=== PATIENT | female | born 1935 | race Caucasian/White ===

== ENCOUNTER 2016-04-06 14:20 | Inpatient (IN) | payer MEDICARE, MEDICAID ==
[2016-04-06] VITALS (9 sets, daily range): BP systolic 76–113; RESP 12–34; TEMP 100.8; BMI 36.1
[~2016-04-06] VITALS: Ht 162.6 cm; Wt 94.3 kg
[2016-04-06] MEDS ORDERED: SODIUM CHLORIDE 0.9% 1,000 ML ONE (15:09)
[2016-04-06] MEDS ORDERED: DUONEB INH ONE (15:23)
[2016-04-06] MEDS ORDERED: SODIUM CHLORIDE 0.9% 2,000 ML ONE (16:32)
[2016-04-06] MEDS ORDERED: SODIUM CHLORIDE 0.9% 100 ML IV ONE (16:39)
[2016-04-06] MEDS ORDERED: VANCOMYCIN 1,500 MG in SODIUM CHLORIDE 0.9% 250 ML IV ONE (16:50)
[2016-04-06] MEDS ORDERED: SODIUM CHLORIDE 0.9% 1,000 ML IV ONE ×2 (17:40)
[2016-04-06] MEDS ORDERED: PHARMACY TO DOSE LEVAQUIN IV SCH (17:40)
[2016-04-06] MEDS ORDERED: PHARMACY TO DOSE MERREM XX SCH (17:40)
[2016-04-06] MEDS ORDERED: PHARMACY TO DOSE VANCOMYCIN IV SCH (17:40)
[2016-04-06] MEDS ORDERED: SODIUM CHLORIDE 0.9% 1,000 ML IV SCH (17:45)
[2016-04-06] MEDS ORDERED: LEVOFLOXACIN 500 MG INJ IV ONE (17:52)
[2016-04-06] MEDS ORDERED: Furosemide 40 MG/4 ML VIAL ONE (19:48)
[2016-04-06] MEDS ORDERED: NOREPINEPHRINE 16 MG in DEXTROSE 5% 234 ML IV SCH (20:05)
[2016-04-06] MEDS: DUONEB INH SCH ×3 (20:10→23:14)
[2016-04-06] MEDS: [UNRECOGNIZED DRUG - REMARK] XX SCH (20:48)
[2016-04-06] MEDS ORDERED: Meropenem 500 MG in SODIUM CHLORIDE 0.9% 100 ML IV SCH (20:50)
[2016-04-06] MEDS ORDERED: VANCOMYCIN 1,750 MG in SODIUM CHLORIDE 0.9% 500 ML IV ONE (20:50)
[2016-04-06] MEDS ORDERED: LEVOFLOXACIN 750 MG/150 ML 150 ML IV SCH (21:00)
[2016-04-06] MEDS: PANTOPRAZOLE 40 MG VIAL IV SCH (21:25)
[2016-04-06] MEDS: Meropenem 500 MG in SODIUM CHLORIDE 0.9% 100 ML IV SCH (21:34)
[2016-04-07] VITALS (67 sets, daily range): BP systolic 74–142; RESP 16–27; TEMP 96.3–100.2; Ht 162.6 cm; Wt 94.3 kg
[2016-04-07] MEDS ORDERED: PROPOFOL 100 ML 100 ML IV ONE (05:37)
[2016-04-07] MEDS ORDERED: FENTANYL DRIP 50 ML IV ONE (06:37)
[2016-04-07] MEDS: PROPOFOL 100 ML 100 ML IV PRN ×4 (06:47→19:49)
[2016-04-07] MEDS: FENTANYL DRIP 50 ML IV PRN ×2 (06:48→13:48)
[2016-04-07] MEDS: [UNRECOGNIZED DRUG - REMARK] XX SCH (07:21)
[2016-04-07] MEDS: DUONEB INH SCH ×5 (07:43→23:18)
[2016-04-07] MEDS: PANTOPRAZOLE 40 MG VIAL IV SCH (07:48)
[2016-04-07] MEDS: Meropenem 500 MG in SODIUM CHLORIDE 0.9% 100 ML IV SCH ×2 (07:51→19:48)
[2016-04-07] MEDS ORDERED: KETAMINE HCL 500 MG/10 ML VIAL ONE (08:27)
[2016-04-07] MEDS ORDERED: ROCURONIUM 50 MG VIAL IV ONE (08:27)
[2016-04-07] MEDS ORDERED: LACT RINGERS 1,000 ML IV SCH (08:30)
[2016-04-07] MEDS ORDERED: LACT RINGERS 1,000 ML IV ONE (08:30)
[2016-04-07] MEDS: CHLORHEXIDINE 0.12% ORAL CARE FOR VENT PATIENTS 15 ML SWAB SCH (12:08)
[2016-04-07] MEDS ORDERED: VANCOMYCIN 1,500 MG in SODIUM CHLORIDE 0.9% 250 ML IV ONE (13:55)
[2016-04-08] VITALS (42 sets, daily range): BP systolic 108–160; RESP 6–26; TEMP 98.6–99.5
[2016-04-08] MEDS: DUONEB INH SCH ×6 (02:50→22:28)
[2016-04-08] MEDS: SODIUM CHLORIDE 0.9% FLUSH BAG 500 ML IV SCH (05:42)
[2016-04-08] MEDS: Meropenem 500 MG in SODIUM CHLORIDE 0.9% 100 ML IV SCH (07:42)
[2016-04-08] MEDS: MAGNESIUM SULF 1 GM/100 ML 100 ML IV SCH ×2 (08:36→10:02)
[2016-04-08] MEDS: PANTOPRAZOLE 40 MG VIAL IV SCH (10:02)
[2016-04-08] MEDS: CEFTRIAXONE 2 GM in SODIUM CHLORIDE 0.9% 50 ML IV SCH (11:23)
[2016-04-08] MEDS: CHLORHEXIDINE 0.12% ORAL CARE FOR VENT PATIENTS 15 ML SWAB SCH ×2 (12:08)
[2016-04-08] MEDS ORDERED: Furosemide 40 MG/4 ML VIAL IV ONE (13:25)
[2016-04-08] MEDS: PROPOFOL 100 ML 100 ML IV PRN (19:40)
[2016-04-09] VITALS (29 sets, daily range): BP systolic 128–176; RESP 10–26; TEMP 99.4–100.7
[2016-04-09] MEDS: CHLORHEXIDINE 0.12% ORAL CARE FOR VENT PATIENTS 15 ML SWAB SCH (00:37)
[2016-04-09] MEDS: DUONEB INH SCH ×6 (02:28→22:20)
[2016-04-09] MEDS: SODIUM CHLORIDE 0.9% FLUSH BAG 500 ML IV SCH (05:54)
[2016-04-09] MEDS: PROPOFOL 100 ML 100 ML IV PRN (05:56)
[2016-04-09] MEDS: LANSOPRAZOLE 30 MG SOLUTAB NG SCH (06:08)
[2016-04-09] MEDS ORDERED: PANTOPRAZOLE 40 MG TAB PO SCH (07:00)
[2016-04-09] MEDS: CEFTRIAXONE 2 GM in SODIUM CHLORIDE 0.9% 50 ML IV SCH (08:42)
[2016-04-09] MEDS ORDERED: Furosemide 40 MG/4 ML VIAL IV ONE ×2 (12:40→19:00)
[2016-04-09] MEDS: ACETAMINOPHEN 325 MG TAB PO PRN ×2 (12:44→20:55)
[2016-04-09] MEDS: Carvedilol 6.25 MG TAB PO SCH ×2 (13:12→20:25)
[2016-04-09] MEDS ORDERED: BISACODYL 10 MG SUPP RECTAL ONE (20:45)
[2016-04-09] MEDS ORDERED: FLEET ENEMA 132 ML BTL RECTAL PRN (20:45)
[2016-04-10] VITALS (25 sets, daily range): BP systolic 99–178; RESP 10–27; TEMP 97.5–98.7
[2016-04-10] MEDS: SODIUM CHLORIDE 0.9% FLUSH BAG 500 ML IV SCH (05:42)
[2016-04-10] MEDS: LANSOPRAZOLE 30 MG SOLUTAB NG SCH (05:42)
[2016-04-10] MEDS: DUONEB INH SCH ×5 (06:00→23:18)
[2016-04-10] MEDS: Carvedilol 6.25 MG TAB PO SCH ×4 (08:30→21:04)
[2016-04-10] MEDS: CEFTRIAXONE 2 GM in SODIUM CHLORIDE 0.9% 50 ML IV SCH (08:32)
[2016-04-10] MEDS ORDERED: KCL CR 20 MEQ TAB PO ONE (08:45)
[2016-04-10] MEDS: POTASSIUM CHLORIDE PREMIX 50 ML IV SCH ×3 (09:20→11:54)
[2016-04-10] MEDS: ACETAMINOPHEN 325 MG TAB PO PRN ×3 (10:39→22:24)
[2016-04-10] MEDS ORDERED: Furosemide 40 MG/4 ML VIAL IV ONE (10:45)
[2016-04-10] MEDS ORDERED: KCL CR 10 MEQ CAP PO ONE (12:15)
[2016-04-10] MEDS: OXYCODONE 5 MG TAB PO PRN (23:56)
[2016-04-11] VITALS (22 sets, daily range): BP systolic 147–190; RESP 10–29; TEMP 97.4–99.6
[2016-04-11] MEDS ORDERED: DILAUDID 1 MG/ML AMP IV ONE (03:30)
[2016-04-11] MEDS: SODIUM CHLORIDE 0.9% FLUSH BAG 500 ML IV SCH (03:46)
[2016-04-11] MEDS: ACETAMINOPHEN 325 MG TAB PO PRN (04:30)
[2016-04-11] MEDS: LANSOPRAZOLE 30 MG SOLUTAB NG SCH (06:22)
[2016-04-11] MEDS: OXYCODONE 5 MG TAB PO PRN ×3 (06:23→18:16)
[2016-04-11] MEDS: DUONEB INH SCH ×5 (07:20→23:09)
[2016-04-11] MEDS: LIDOCAINE 5% 700 MG PATCH TOPICAL PRN (08:08)
[2016-04-11] MEDS: CEFTRIAXONE 2 GM in SODIUM CHLORIDE 0.9% 50 ML IV SCH (08:11)
[2016-04-11] MEDS: CARVEDILOL 25 MG TAB PO SCH ×2 (08:13→20:43)
[2016-04-11] MEDS ORDERED: Furosemide 40 MG/4 ML VIAL IV ONE (11:00)
[2016-04-11] MEDS: KCL CR 10 MEQ CAP PO SCH ×2 (11:34→20:43)
[2016-04-12] MEDS: OXYCODONE 5 MG TAB PO PRN ×2 (00:02→06:00)
[2016-04-12] MEDS ORDERED: MISSING DOSE XX ONE (00:20)
[2016-04-12] MEDS: TEMAZEPAM 7.5 MG CAP PO PRN (01:01)
[2016-04-12 03:54] VITALS: BP_SYST 164; RESP 18; TEMP 99.1
[2016-04-12] MEDS: SODIUM CHLORIDE 0.9% FLUSH BAG 500 ML IV SCH (04:41)
[2016-04-12] MEDS: LANSOPRAZOLE 30 MG SOLUTAB NG SCH (06:00)
[2016-04-12] MEDS: DUONEB INH SCH ×5 (07:18→23:00)
[2016-04-12 07:29] VITALS: BP_SYST 179; RESP 18; TEMP 98.4
[2016-04-12] MEDS: CEFTRIAXONE 2 GM in SODIUM CHLORIDE 0.9% 50 ML IV SCH (09:41)
[2016-04-12] MEDS: CARVEDILOL 25 MG TAB PO SCH ×2 (09:41→20:43)
[2016-04-12 11:19] VITALS: BP_SYST 140; RESP 18; TEMP 97.6
[2016-04-12 15:23] VITALS: BP_SYST 144; RESP 18; TEMP 98.6
[2016-04-12] MEDS: amLODIPine 10 MG TAB PO SCH (16:05)
[2016-04-12] MEDS: DOCUSATE SOD 100 MG CAP PO SCH (16:05)
[2016-04-12 19:44] VITALS: BP_SYST 156; RESP 16; TEMP 98.9
[2016-04-12 22:55] VITALS: BP_SYST 184; RESP 16; TEMP 98.5
[2016-04-13 03:05] VITALS: BP_SYST 170; RESP 16; TEMP 98.3
[2016-04-13] MEDS: LANSOPRAZOLE 30 MG SOLUTAB NG SCH (04:54)
[2016-04-13] MEDS: SODIUM CHLORIDE 0.9% FLUSH BAG 500 ML IV SCH (04:54)
[2016-04-13] MEDS: DUONEB INH SCH ×5 (07:31→22:52)
[2016-04-13 07:54] VITALS: BP_SYST 185; RESP 18; TEMP 97.7
[2016-04-13] MEDS: CEFTRIAXONE 2 GM in SODIUM CHLORIDE 0.9% 50 ML IV SCH (09:22)
[2016-04-13] MEDS: DOCUSATE SOD 100 MG CAP PO SCH (09:26)
[2016-04-13] MEDS: amLODIPine 10 MG TAB PO SCH (09:26)
[2016-04-13] MEDS: CARVEDILOL 25 MG TAB PO SCH ×2 (09:26→19:44)
[2016-04-13 11:28] VITALS: BP_SYST 154; RESP 20; TEMP 99
[2016-04-13] MEDS: KCL CR 10 MEQ CAP PO SCH ×2 (11:46→19:44)
[2016-04-13] MEDS ORDERED: MISSING DOSE XX ONE (13:50)
[2016-04-13] MEDS: LIDOCAINE 5% 700 MG PATCH TOPICAL PRN (14:40)
[2016-04-13 16:38] VITALS: BP_SYST 185; RESP 18; TEMP 97.9
[2016-04-13 19:31] VITALS: BP_SYST 175; RESP 20; TEMP 98
[2016-04-13] MEDS: VENLAFAXINE XR 37.5 MG CAP PO SCH (19:44)
[2016-04-13] MEDS: MIRTAZAPINE 15 MG TAB PO SCH (19:45)
[2016-04-13 23:50] VITALS: BP_SYST 149; RESP 18; TEMP 98
[2016-04-14 04:21] VITALS: BP_SYST 158; BP_SYST 166; RESP 18; TEMP 98.3
[2016-04-14] MEDS: SODIUM CHLORIDE 0.9% FLUSH BAG 500 ML IV SCH (05:03)
[2016-04-14] MEDS: LANSOPRAZOLE 30 MG SOLUTAB NG SCH (06:25)
[2016-04-14] MEDS: DUONEB INH SCH ×5 (06:54→23:05)
[2016-04-14 07:41] VITALS: BP_SYST 154; RESP 18; TEMP 98.1
[2016-04-14] MEDS: DOCUSATE SOD 100 MG CAP PO SCH (08:30)
[2016-04-14] MEDS: CARVEDILOL 25 MG TAB PO SCH ×2 (08:30→19:46)
[2016-04-14] MEDS: amLODIPine 10 MG TAB PO SCH (08:30)
[2016-04-14] MEDS: CEFTRIAXONE 2 GM in SODIUM CHLORIDE 0.9% 50 ML IV SCH (08:31)
[2016-04-14 12:15] VITALS: BP_SYST 120; RESP 18; TEMP 97.9
[2016-04-14 16:00] VITALS: BP_SYST 132; RESP 20; TEMP 97.9
[2016-04-14 19:00] VITALS: BP_SYST 165; RESP 20; TEMP 98.4
[2016-04-14] MEDS: VENLAFAXINE XR 37.5 MG CAP PO SCH (19:46)
[2016-04-14] MEDS: MIRTAZAPINE 15 MG TAB PO SCH (19:46)
[2016-04-14] MEDS: OXYCODONE 5 MG TAB PO PRN (19:54)
[2016-04-14 23:00] VITALS: BP_SYST 172; RESP 20; TEMP 98.1
[2016-04-15] VITALS (8 sets, daily range): BP systolic 150–183; RESP 18–20; TEMP 96.7–99
[2016-04-15] MEDS: LANSOPRAZOLE 30 MG SOLUTAB NG SCH (06:34)
[2016-04-15] MEDS: SODIUM CHLORIDE 0.9% FLUSH BAG 500 ML IV SCH (06:34)
[2016-04-15] MEDS: DUONEB INH SCH ×5 (07:39→22:54)
[2016-04-15] MEDS: CARVEDILOL 25 MG TAB PO SCH ×2 (08:39→21:37)
[2016-04-15] MEDS: CEFTRIAXONE 2 GM in SODIUM CHLORIDE 0.9% 50 ML IV SCH (08:39)
[2016-04-15] MEDS: DOCUSATE SOD 100 MG CAP PO SCH (08:39)
[2016-04-15] MEDS: amLODIPine 10 MG TAB PO SCH (08:39)
[2016-04-15] MEDS: TEMAZEPAM 7.5 MG CAP PO PRN (21:37)
[2016-04-15] MEDS: VENLAFAXINE XR 37.5 MG CAP PO SCH (21:37)
[2016-04-15] MEDS: MIRTAZAPINE 15 MG TAB PO SCH (21:37)
[2016-04-16 04:17] VITALS: BP_SYST 168; RESP 18; TEMP 97.7
[2016-04-16] MEDS: DUONEB INH SCH ×6 (06:25→22:41)
[2016-04-16] MEDS: LANSOPRAZOLE 30 MG SOLUTAB NG SCH (06:47)
[2016-04-16] MEDS: SODIUM CHLORIDE 0.9% FLUSH BAG 500 ML IV SCH (06:48)
[2016-04-16 07:38] VITALS: BP_SYST 167; RESP 18; TEMP 97.7
[2016-04-16] MEDS: CEFTRIAXONE 2 GM in SODIUM CHLORIDE 0.9% 50 ML IV SCH (09:58)
[2016-04-16] MEDS: amLODIPine 10 MG TAB PO SCH (10:00)
[2016-04-16] MEDS: CARVEDILOL 25 MG TAB PO SCH ×2 (10:00→21:49)
[2016-04-16] MEDS: DOCUSATE SOD 100 MG CAP PO SCH (10:00)
[2016-04-16 11:12] VITALS: BP_SYST 143; RESP 18; TEMP 97.5
[2016-04-16] MEDS: Dronabinol 2.5 MG CAP PO SCH ×2 (14:37→22:29)
[2016-04-16 15:20] VITALS: BP_SYST 153; RESP 18; TEMP 97.6
[2016-04-16 19:00] VITALS: BP_SYST 168; RESP 22; TEMP 98.7
[2016-04-16] MEDS: MIRTAZAPINE 15 MG TAB PO SCH (21:48)
[2016-04-16] MEDS: VENLAFAXINE XR 37.5 MG CAP PO SCH (21:49)
[2016-04-17] VITALS (7 sets, daily range): BP systolic 154–187; RESP 16–22; TEMP 97.7–98.9
[2016-04-17] MEDS: LANSOPRAZOLE 30 MG SOLUTAB NG SCH (06:48)
[2016-04-17] MEDS: SODIUM CHLORIDE 0.9% FLUSH BAG 500 ML IV SCH (06:48)
[2016-04-17] MEDS: DUONEB INH SCH ×5 (07:00→23:11)
[2016-04-17] MEDS: CEFTRIAXONE 2 GM in SODIUM CHLORIDE 0.9% 50 ML IV SCH (09:48)
[2016-04-17] MEDS: CARVEDILOL 25 MG TAB PO SCH ×2 (09:51→20:41)
[2016-04-17] MEDS: DOCUSATE SOD 100 MG CAP PO SCH (09:52)
[2016-04-17] MEDS: amLODIPine 10 MG TAB PO SCH (09:52)
[2016-04-17] MEDS: Dronabinol 2.5 MG CAP PO SCH ×2 (09:52→20:41)
[2016-04-17] MEDS: MIRTAZAPINE 15 MG TAB PO SCH (20:40)
[2016-04-17] MEDS: VENLAFAXINE XR 37.5 MG CAP PO SCH (20:40)
[2016-04-18 03:35] VITALS: BP_SYST 150; RESP 22; TEMP 98
[2016-04-18] MEDS: LANSOPRAZOLE 30 MG SOLUTAB NG SCH (06:06)
[2016-04-18] MEDS: SODIUM CHLORIDE 0.9% FLUSH BAG 500 ML IV SCH (06:09)
[2016-04-18] MEDS: OXYCODONE 5 MG TAB PO PRN ×3 (06:33→23:55)
[2016-04-18] MEDS: DUONEB INH SCH ×5 (07:03→22:20)
[2016-04-18 07:26] VITALS: BP_SYST 159; RESP 18; TEMP 97.6
[2016-04-18] MEDS ORDERED: MISSING DOSE XX ONE ×2 (09:25→21:15)
[2016-04-18] MEDS: DOCUSATE SOD 100 MG CAP PO SCH (09:34)
[2016-04-18] MEDS: amLODIPine 10 MG TAB PO SCH (09:34)
[2016-04-18] MEDS: CARVEDILOL 25 MG TAB PO SCH ×2 (09:34→21:12)
[2016-04-18] MEDS: Dronabinol 2.5 MG CAP PO SCH ×2 (09:34→21:12)
[2016-04-18] MEDS: CEFTRIAXONE 2 GM in SODIUM CHLORIDE 0.9% 50 ML IV SCH (09:51)
[2016-04-18 11:43] VITALS: BP_SYST 141; RESP 18; TEMP 98.7
[2016-04-18] MEDS: KCL 20 MEQ PACK PO SCH ×2 (12:34→21:12)
[2016-04-18] MEDS: BISACODYL EC 5 MG TAB PO SCH (12:35)
[2016-04-18 15:24] VITALS: BP_SYST 155; RESP 18; TEMP 97.7
[2016-04-18 20:04] VITALS: BP_SYST 154; RESP 16; TEMP 97.8
[2016-04-18] MEDS: VENLAFAXINE XR 37.5 MG CAP PO SCH (21:12)
[2016-04-18] MEDS: MIRTAZAPINE 15 MG TAB PO SCH (21:12)
[2016-04-18] MEDS: TEMAZEPAM 7.5 MG CAP PO PRN (21:39)
[2016-04-18 23:31] VITALS: BP_SYST 148; RESP 16; TEMP 98.5
[2016-04-19 04:24] VITALS: BP_SYST 166; RESP 18; TEMP 97.8
[2016-04-19] MEDS: SODIUM CHLORIDE 0.9% FLUSH BAG 500 ML IV SCH (06:23)
[2016-04-19] MEDS: LANSOPRAZOLE 30 MG SOLUTAB NG SCH (06:23)
[2016-04-19] MEDS: OXYCODONE 5 MG TAB PO PRN ×3 (06:23→21:33)
[2016-04-19] MEDS: DUONEB INH SCH ×5 (07:33→23:36)
[2016-04-19] MEDS: BISACODYL EC 5 MG TAB PO SCH (09:23)
[2016-04-19] MEDS: CARVEDILOL 25 MG TAB PO SCH ×2 (09:23→21:33)
[2016-04-19] MEDS: Dronabinol 2.5 MG CAP PO SCH ×2 (09:23→21:33)
[2016-04-19] MEDS: amLODIPine 10 MG TAB PO SCH (09:23)
[2016-04-19] MEDS: CEFTRIAXONE 2 GM in SODIUM CHLORIDE 0.9% 50 ML IV SCH (09:23)
[2016-04-19 11:47] VITALS: BP_SYST 112; TEMP 98.7
[2016-04-19 15:46] VITALS: BP_SYST 158; RESP 20; TEMP 98.2
[2016-04-19] MEDS ORDERED: MISSING DOSE XX ONE (17:25)
[2016-04-19 19:59] VITALS: BP_SYST 166; RESP 20; TEMP 98
[2016-04-19] MEDS: POLYETHYLENE GLYCOL 17 GM PACKET PO SCH (21:00)
[2016-04-19] MEDS: MIRTAZAPINE 15 MG TAB PO SCH (21:33)
[2016-04-19] MEDS: VENLAFAXINE XR 37.5 MG CAP PO SCH (21:33)
[2016-04-19 23:01] VITALS: BP_SYST 148; RESP 20; TEMP 97
[2016-04-19] MEDS ORDERED: SALINE FLUSH 10 ML FLUSH PRN (23:25)
[2016-04-20 03:20] VITALS: BP_SYST 152; RESP 20; TEMP 98
[2016-04-20] MEDS: SODIUM CHLORIDE 0.9% FLUSH BAG 500 ML IV SCH ×2 (04:59→05:02)
[2016-04-20] MEDS: OXYCODONE 5 MG TAB PO PRN ×3 (05:03→18:23)
[2016-04-20] MEDS: LANSOPRAZOLE 30 MG SOLUTAB NG SCH (06:32)
[2016-04-20] MEDS: DUONEB INH SCH ×5 (07:19→23:57)
[2016-04-20 07:30] VITALS: BP_SYST 147; RESP 18
[2016-04-20] MEDS: amLODIPine 10 MG TAB PO SCH (08:53)
[2016-04-20] MEDS: CARVEDILOL 25 MG TAB PO SCH ×2 (08:53→20:21)
[2016-04-20] MEDS: BISACODYL EC 5 MG TAB PO SCH (08:53)
[2016-04-20] MEDS: SALINE FLUSH 10 ML FLUSH SCH ×2 (08:54→20:22)
[2016-04-20] MEDS: CEFTRIAXONE 2 GM in SODIUM CHLORIDE 0.9% 50 ML IV SCH (08:54)
[2016-04-20] MEDS: Dronabinol 2.5 MG CAP PO SCH ×2 (09:31→20:21)
[2016-04-20 11:12] VITALS: BP_SYST 125; RESP 18; TEMP 98.4
[2016-04-20 14:58] VITALS: BP_SYST 113; RESP 18; TEMP 97.3
[2016-04-20 19:16] VITALS: BP_SYST 108; RESP 20; TEMP 97.3
[2016-04-20] MEDS ORDERED: MISSING DOSE XX ONE ×2 (20:15→20:30)
[2016-04-20] MEDS: POLYETHYLENE GLYCOL 17 GM PACKET PO SCH ×3 (20:19→21:00)
[2016-04-20] MEDS: MIRTAZAPINE 15 MG TAB PO SCH (20:20)
[2016-04-20] MEDS: TEMAZEPAM 7.5 MG CAP PO PRN (20:46)
[2016-04-20] MEDS: VENLAFAXINE XR 37.5 MG CAP PO SCH (20:46)
[2016-04-20 23:06] VITALS: BP_SYST 144; RESP 20; RESP 68; TEMP 97.6
[2016-04-21 03:37] VITALS: BP_SYST 140; RESP 20; TEMP 97.5
[2016-04-21] MEDS: SODIUM CHLORIDE 0.9% FLUSH BAG 500 ML IV SCH ×2 (05:44→06:02)
[2016-04-21] MEDS: DUONEB INH SCH ×3 (07:25→15:49)
[2016-04-21 07:39] VITALS: BP_SYST 150; TEMP 98.5
[2016-04-21] MEDS: Dronabinol 2.5 MG CAP PO SCH (09:17)
[2016-04-21] MEDS: SALINE FLUSH 10 ML FLUSH SCH ×2 (09:18→17:30)
[2016-04-21] MEDS: LANSOPRAZOLE 30 MG SOLUTAB NG SCH (09:18)
[2016-04-21] MEDS: CARVEDILOL 25 MG TAB PO SCH (09:18)
[2016-04-21] MEDS: amLODIPine 10 MG TAB PO SCH (09:18)
[2016-04-21] MEDS: BISACODYL EC 5 MG TAB PO SCH (09:18)
[2016-04-21] MEDS: CEFTRIAXONE 2 GM in SODIUM CHLORIDE 0.9% 50 ML IV SCH (09:19)
[2016-04-21 11:31] VITALS: BP_SYST 137; RESP 18; TEMP 97.5
[2016-04-21] MEDS: OXYCODONE 5 MG TAB PO PRN (15:13)
[2016-04-21 16:17] VITALS: BP_SYST 140; RESP 18; TEMP 98.4
[2016-04-21 16:28] VITALS: BP_SYST 140; RESP 18; TEMP 98.4
== END 2016-04-21 17:50 | DRG 871 ==
LOC: ENRESERVDT → ENRESERVTM → ER 14:20 → ENPENDDIS 16:48 → EMR 16:48 → CCU 19:31 → 4THE 04-11 19:50 → 3NT 04-19 23:11
PROVIDERS: ADMIT Hospitalist; ATTEND Hospitalist
PROC: 5A1945Z Respiratory Ventilation, 24-96 Consecutive Hours (ICD-10-PCS; principal; 2016-04-07)
PROC: 0BH17EZ Insertion of Endotracheal Airway into Trachea, Via Natural or Artificial Opening (ICD-10-PCS; 2016-04-07)
CPT/HCPCS: 36415; 36600; 70551; 71010; 80048; 80053; 80069; 80202; 81001; 82040; 82553; 82803; 83605; 83615; 83735; 84100; 84132; 84484; 85007; 85027; 85610; 85730; 87040; 87077; 87278; 87299; 93005; 93306; 94002; 94003; 94640; 94799; 96361; 96365; 96367; 99231; 99232; 99233; 99238; 99291

== ENCOUNTER 2016-04-22 11:41 | Emergency (ER) | payer MEDICARE, MEDICAID ==
[2016-04-22] MEDS ORDERED: SODIUM CHLORIDE 0.9% 1,000 ML ONE (14:26)
[2016-04-22] MEDS ORDERED: ONDANSETRON 4 MG VIAL ONE (15:41)
[2016-04-22] MEDS ORDERED: MORPHINE 4 MG/ML SYR ONE (15:42)
[2016-04-22] MEDS ORDERED: Furosemide 40 MG/4 ML VIAL ONE (15:59)
== END 2016-04-22 16:49 | disposition home or self-care (01) ==
LOC: ER 11:41
CPT/HCPCS: 36415 ×2; 36600 ×2; 71010 ×2; 80053 ×2; 81001 ×2; 82803 ×2; 83605 ×2; 83880 ×2; 85007 ×2; 85027 ×2; 87040 ×2; 87088 ×2; 93005 ×2; 96361 ×2; 96372 ×2; 96374 ×2; 96375 ×2; 99285; J2270; J2405